=== PATIENT | female | born 1995 | race Two or more races ===

== ENCOUNTER 2018-12-13 16:30 | Inpatient (IN) | payer OTHER | END 2018-12-14 00:47 | disposition home or self-care (01) | LOC: JLDR 16:30 ==

== ENCOUNTER 2018-12-14 02:10 | Inpatient (IN) | payer OTHER ==
[2018-12-14] MEDS ORDERED: ELECTROLYTE-148 SOLN 1,000 ML IV SCH (03:10)
[2018-12-14] MEDS ORDERED: AMPICILLIN - 2 GM in SODIUM CHLORIDE 100 ML IVPB ONE (04:00)
[2018-12-14] MEDS ORDERED: BUTORPHANOL TARTRATE 2 MG/ML VIAL IVPB ONE (04:00)
[2018-12-14] MEDS ORDERED: PROMETHAZINE HCL 25 MG/1 ML VIAL IVPB ONE (04:00)
[2018-12-14] MEDS ORDERED: BUTORPHANOL TARTRATE 1 MG/ML VIAL ONE ×2 (04:05)
[2018-12-14] MEDS ORDERED: PROMETHAZINE HCL 25 MG/1 ML VIAL ONE (04:05)
[2018-12-14 04:38] VITALS: BMI 29.9
[2018-12-14] MEDS ORDERED: AMPICILLIN SODIUM 1 GM VIAL ONE (04:43)
[2018-12-14] MEDS: AMPICILLIN - 1 GM in SODIUM CHLORIDE 100 ML IVPB SCH ×2 (04:50→11:58)
[2018-12-14] MEDS ORDERED: TUBERCULIN PPD 5 TU/0.1ML SYRINGE (IN PATIENT USE ONLY) ID ONE (06:00)
[2018-12-14] MEDS ORDERED: FENTANYL/BUPIVACAINE/NS/PF - PCEA - 50 ML DISP.SYRIN EP ONE (06:15)
[2018-12-14] MEDS ORDERED: BUPIVACAINE HCL/PF 0.25% (2.5MG/ML) 10 ML VIAL ONE (06:31)
[2018-12-14] MEDS ORDERED: NALOXONE HCL 0.4 MG/ML VIAL IVPUSH PRN (07:04)
[2018-12-14] MEDS ORDERED: FENTANYL/BUPIVACAINE/NS/PF - PCEA - 50 ML DISP.SYRIN EP SCH (07:15)
[2018-12-14] MEDS ORDERED: OXYTOCIN 20 UNITS in 0.9% NS 20 UNIT/1,000 ML INFUS.BAG IV ONE ×2 (07:25→10:19)
[2018-12-14] MEDS ORDERED: LIDOCAINE HCL 1% PRESERVATIVE FREE - 30ML VIAL ONE (07:26)
--- NOTE | 2018-12-14 07:41 | HP ---
Past Medical History - Admission Chief Complaint: Rupture of membrane History of Present Illness: 23 yo , @ 40 weeks gestation, admitted for rupture of membrane. History Source: Patient Limitations to Obtaining History: No Limitations - Past Medical History ...: 2 ...Para: 0 ...Term: 0 ...: 0 ...Spon : 0 ...Induced : 1 ...Multiple Gestation: 0 ...LMP: 02/22/18 ... Weeks Gestation by Dates: 42.1 ...EDC by Dates: 11/29/18 ...EDC by Sono: 12/14/18 - Past Surgical History Past Surgical History: Yes: None Hx Myomectomy: No Hx Transabdominal Cerclage: No - Smoking History Smoking history: Never smoked Have you smoked in the past 12 months: No - Alcohol/Substance Use Hx Alcohol Use: No History of Substance Use: reports: None - Social History History of Recent Travel: No Home Medications - Allergies Allergies/Adverse Reactions: Allergies Allergy/AdvReac Type Severity Reaction Status Date / Time shellfish derived Allergy Severe Itching Verified 12/13/18 18:37 - Home Medications Home Medications: Ambulatory Orders Albuterol Sulfate Inhaler - [Ventolin Hfa Inhaler -] 1 - 2 inh PO QID 12/14/18 Vitamins (Sjr) - 1 tab PO DAILY 12/14/18 Family Disease History - Family Disease History Family History: Unremarkable Review of Systems - Review of Systems Constitutional: reports: No Symptoms Eyes: reports: No Symptoms HENT: reports: No Symptoms Neck: reports: No Symptoms Cardiovascular: reports: No Symptoms Respiratory: reports: No Symptoms Gastrointestinal: reports: No Symptoms Genitourinary: reports: Pain, Other (Leaking of fluid) Breasts: reports: No Symptoms Reported Musculoskeletal: reports: No Symptoms Integumentary: reports: No Symptoms Neurological: reports: No Symptoms Endocrine: reports: No Symptoms Hematology/Lymphatic: reports: No Symptoms Psychiatric: reports: No Symptoms Pain Intensity: 5 Physical Exam - Maternity Vital Signs: Vital Signs Temperature 98.4 F 12/14/18 06:00 Pulse Rate 98 H 12/14/18 07:00 Respiratory Rate 18 12/14/18 07:00 Blood Pressure 139/93 12/14/18 07:00 O2 Sat by Pulse Oximetry (%) 99 12/14/18 07:00 Constitutional: Yes: Well Nourished Eyes: Yes: Conjunctiva Clear HENT: Yes: Atraumatic Neck: Yes: Supple Cardiovascular: Yes: Regular Rate and Rhythm Lungs: Clear to auscultation - Abdominal Exam/OB Number of Fetuses: Single Presentation: Vertex - Vaginal Exam/OB Dilatation (cm): 3 Effacement (%): 80 Amniotic Membrane Status: Leaking Station: -1 - Physical Exam Musculoskeletal: Yes: WNL Extremities: Yes: WNL ...Motor Strength: WNL Psychiatric: Yes: Alert, Oriented Problem List - Problems (1) 40 weeks gestation of Code(s): Z3A.40 - 40 WEEKS GESTATION OF (2) Rupture of membranes with clear amniotic fluid Code(s): HBA9735 - Assessment/Plan 40 weeks gestation Spontaneous rupture of membrane Admit to L&D Analgesia as needed Anticipate
--- NOTE | 2018-12-14 08:51 | PN ---
Delivery - Delivery Vaginal Delivery: No Problems Type of Anesthesia: Epidural Episiotomy/Laceration: 1st degree EBL (cc): 250 Delivery, Single - Stages of Labor Date 1st Stage Initiatied: 12/13/18 Date 2nd Stage Initiated: 12/14/18 Date of Delivery: 12/14/18 Placenta: Yes: Spontaneous - Condition of Infant Hat Conditioner/Bilingual Office Assistant Present: No Infant Gender: Female Position: Left, OA - 1 Minute Total Score: 9 5 Minutes Total Score: 9 - [place] Feeding Plan Initial Plan: Elected not to breastfeed exclusively throughout hospitalization Remarks - Remarks Remarks: Uncomplicated of baby girl across 1st degree vaginal laceration from BALJEET Position nuchal cord noted after delivery of head, clamped and cut at perineum anterior shoulder (right) delivered with ease along with remainder of mouth and nose bulb suctioned placenta delivered with 3VC and in tact 1st degree laceration repaired with 2-0 chromic in a single figure of 8 suture sponge and needle count correct mom stable baby to well baby nursery
[2018-12-14] MEDS ORDERED: WITCH HAZEL 50% (TUCKS) 40 PAD/JAR PAD TP PRN (08:53)
[2018-12-14] MEDS ORDERED: METHYLERGONOVINE MALEATE 0.2 MG/1 ML AMP IM PRN (08:53)
[2018-12-14] MEDS ORDERED: BISACODYL 10 MG SUPP.RECT RC PRN (08:53)
[2018-12-14] MEDS ORDERED: BENZOCAINE 20% 57 GM BOTTLE TP PRN (08:53)
[2018-12-14] MEDS ORDERED: BENZOCAINE 28 GM HEMORRHOIDAL OINTMENT TP PRN (08:53)
[2018-12-14] MEDS ORDERED: OXYTOCIN 20 UNITS in 0.9% NS 20 UNIT/1,000 ML INFUS.BAG IV SCH (09:00)
[2018-12-14] MEDS ORDERED: IBUPROFEN 600 MG TABLET (FP) PO ONE (09:47)
[2018-12-14] MEDS ORDERED: ACETAMINOPHEN 325 MG TABLET (FP) ONE (09:47)
[2018-12-14] MEDS: IBUPROFEN 600 MG TABLET (FP) PO PRN ×2 (09:50→19:44)
[2018-12-14] MEDS: ACETAMINOPHEN 325 MG TABLET (FP) PO PRN ×2 (09:50→19:44)
[2018-12-14] MEDS: PRENATAL VITAMINS W/ FOLIC ACID TABLET (FP) PO SCH (10:33)
--- NOTE | 2018-12-15 07:23 | PN ---
Post Note - Post Date of Delivery: 12/14/18 Vital Signs: Vital Signs - 24 hr 12/14/18 12/14/18 12/14/18 07:30 07:45 08:00 Temperature Pulse Rate 98 H 100 H 109 H Respiratory 18 18 18 Rate Blood Pressure 140/94 147/105 H 135/85 O2 Sat by Pulse 100 100 100 Oximetry (%) 12/14/18 12/14/18 12/14/18 08:15 09:10 09:25 Temperature Pulse Rate 103 H 110 H 104 H Respiratory 18 18 18 Rate Blood Pressure 139/100 139/88 132/86 O2 Sat by Pulse 100 100 100 Oximetry (%) 12/14/18 12/14/18 12/14/18 09:40 09:55 12:02 Temperature 98.1 F 98.3 F Pulse Rate 100 H 87 90 Respiratory 18 18 20 Rate Blood Pressure 135/82 126/72 128/83 O2 Sat by Pulse 100 100 Oximetry (%) 12/14/18 12/14/18 12/14/18 14:00 18:00 22:00 Temperature 98.7 F 98.9 F 98.5 F Pulse Rate 100 H 96 H 91 H Respiratory 20 20 18 Rate Blood Pressure 120/50 L 114/86 107/63 O2 Sat by Pulse Oximetry (%) 12/15/18 12/15/18 02:00 05:58 Temperature 98.2 F 98.7 F Pulse Rate 86 96 H Respiratory 18 18 Rate Blood Pressure 127/72 118/54 L O2 Sat by Pulse Oximetry (%) Labs: Laboratory Results - last 24 hr 12/14/18 10:34 Screen Negative Baby's Blood Type O positive Unit Expiration Date - Subjective Subjective: No Complaints, Ambulating - Objective Afebrile: Yes Breast: Not engorged Abdomen: Soft, Non-tender Uterus: Fundus firm Vagina: Scant lochia Extremities: Non-tender - Assessment/Plan (2) (normal spontaneous vaginal delivery) Assessment: S/P Normal Plan: Routine Care
[2018-12-15 10:27] LABS: BASO % 0.3 % (0-2.0); EOS % 0.6 % (0-4.5); HEMATOCRIT 30.2 % (32.4-45.2); HEMOGLOBIN 10.1 GM/dL (10.7-15.3); LYMPH % 17.5 % (8-40); MCH 29.3 pg (25.7-33.7); MCHC 33.6 g/dl (32.0-36.0); MEAN CELL VOLUME 87.4 fl (80-96); MEAN PLT VOLUME 9.1 fl (7.5-11.1); MONO % 5.9 % (3.8-10.2); NEUT % 75.7 % (42.8-82.8); PLATELET COUNT 198 K/MM3 (134-434); RBC 3.46 M/mm3 (3.60-5.2); RDW 14.6 % (11.6-15.6); WHITE BLOOD COUNT 16.4 K/mm3 (4.0-10.0)
[2018-12-15] MEDS: PRENATAL VITAMINS W/ FOLIC ACID TABLET (FP) PO SCH (10:36)
[2018-12-15] MEDS: ACETAMINOPHEN 325 MG TABLET (FP) PO PRN (20:54)
[2018-12-15] MEDS: IBUPROFEN 600 MG TABLET (FP) PO PRN (20:54)
[2018-12-15] MEDS ORDERED: SENNOSIDES/DOCUSATE COMBO (SENNA PLUS) TABLET (UD) PO PRN (22:00)
--- NOTE | 2018-12-16 08:30 | DS ---
Physical Exam-ADMINISTRATIVE DIRECTOR Vital Signs: Vital Signs Temperature 98.4 F 12/15/18 22:00 Pulse Rate 77 12/15/18 22:00 Respiratory Rate 20 12/15/18 22:00 Blood Pressure 125/84 12/15/18 22:00 O2 Sat by Pulse Oximetry (%) 100 12/14/18 09:55 Constitutional: Yes: Well Nourished, No Distress Gastrointestinal: Yes: WNL, Soft ....Post : Yes: Uterus firm, Uterus non-tender Breast(s): Yes: WNL Musculoskeletal: Yes: WNL Extremities: Yes: WNL Edema: No Neurological: Yes: WNL, Alert, Oriented Labs: CBC, BMP 12/15/18 08:10 Delivery - Delivery Vaginal Delivery: No Problems Type of Anesthesia: Epidural Episiotomy/Laceration: Perineal Extension/lac, 1st degree EBL (cc): 250 Delivery, Single - Stages of Labor Date 1st Stage Initiatied: 12/14/18 Time 1st Stage Initiated: 03:00 Date 2nd Stage Initiated: 12/14/18 Time 2nd Stage Initiated: 07:25 Date of Delivery: 12/14/18 Time of Delivery: 08:34 Time Placenta Delivered: 08:40 Placenta: Yes: Spontaneous - Condition of Infant Radiophone Operator/Diabetologist Present: No Infant Gender: Female Weight: 6 lb Position: Left, OA Total Hours ROM (Hrs/Mins): 5hrs 40min - 1 Minute Total Score: 9 5 Minutes Total Score: 9 - [place] Feeding Plan Initial Plan: Elected not to breastfeed exclusively throughout hospitalization Discharge Summary Reason For Visit: LABOR Current Active Problems 40 weeks gestation of (Acute) (normal spontaneous vaginal delivery) (Acute) (normal spontaneous vaginal delivery) (Acute) Rupture of membranes with clear amniotic fluid (Acute) Procedures: Principal: Normal Vaginal Delivery Condition: Good - Instructions Diet, Activity, Other Instructions: Dr. Yuli Lagos Hand [employer] discharge instructions Physical activity Resume your normal everyday activity as tolerated no heavy lifting or exercise until seen by your surgeon. You may walk unlimited drake of and climb stairs. You may resume driving the car when you feel safe and comfortable behind the wheel. No sexual activity as instructed by Dr. Lagos. Wound care If you have a bandage, leave it on, and keep dry for 48-72 hours. After that time discard the outer bandage. If they are tapes on the skin under the out of bandage leave them in place. They will peel off in the next 7 to 10 days. Do Not Peel them off. You may shower the day after surgery. If there are tapes present on the skin, you may shower over them. Diet There are no dietary restrictions. Eat healthy, high-fiber foods. Drink 6 to 8 glasses of liquid each day. This will assist in keeping your bowels are regular. Pain management You may take Tylenol or acetaminophen or Ibuprofen (for example, Motrin, Advil etc.) from my pain prescription medication is ordered should be taken as prescribed for moderate to severe pain. Call Dr. Lagos for any of the following: Severe pain not relieved by medication Fever of 101 or higher Excessive bleeding or drainage on dressing Inability to urinate Call the office at [phone] for an appointment in seven days. Disposition: HOME - Home Medications Comprehensive Discharge Medication List: Ambulatory Orders Albuterol Sulfate Inhaler - [Ventolin Hfa Inhaler -] 1 - 2 inh PO QID 12/14/18 Vitamins (Sjr) - 1 tab PO DAILY 12/14/18 Ibuprofen [Motrin -] 600 mg PO TID #21 tablet 12/15/18
[2018-12-16] MEDS: PRENATAL VITAMINS W/ FOLIC ACID TABLET (FP) PO SCH (10:00)
[2018-12-16] MEDS: ACETAMINOPHEN 325 MG TABLET (FP) PO PRN (10:55)
[2018-12-16] MEDS: IBUPROFEN 600 MG TABLET (FP) PO PRN (10:56)
[2018-12-16 13:19] VITALS: BP 124/68; PULSE 82; TEMP 98.6
== END 2018-12-16 12:15 | disposition home or self-care (01) | DRG 560 ==
LOC: JLDR 02:10 → J3W 10:49
PROVIDERS: ADMIT Obstetrics & Gynecology; ATTEND Obstetrics & Gynecology
PROC: 0HQ9XZZ Repair Perineum Skin, External Approach (ICD-10-PCS; principal; 2018-12-14)
PROC: 10E0XZZ Delivery of Products of Conception, External Approach (ICD-10-PCS; 2018-12-14)
DX: O69.81X0 Labor and delivery complicated by cord around neck, without compression, not applicable or unspecified (principal); O70.0 First degree perineal laceration during delivery; Z3A.40 40 weeks gestation of pregnancy; Z37.0 Single live birth
CPT/HCPCS: 36415; 59409; 80048; 85025; 85461; 85610; 85730; 86593; 86850; 86900; 86901; 86999